=== PATIENT | male | born 1950 | race Caucasian/White ===

== ENCOUNTER → 2017-06-22 07:47 | Outpatient (CLI) | payer MEDICARE, SELFPAY ==
[2017-06-22 13:28] LABS: Hemoglobin A1C 6.2 % (0.0-7.0)
[2017-06-22 13:35] LABS: Alanine Aminotransferase 30 U/L (12-78); Albumin Level 3.8 gm/dL (3.4-5.0); Albumin/Globulin Ratio 1.3 (1.1-1.8); Alkaline Phosphatase 64 U/L (46-116); Anion Gap 13.8 mEq/L (5-15); Aspartate Amino Transferase 21 U/L (15-37); Bilirubin,Total 0.4 mg/dL (0.2-1.0); Blood Urea Nitrogen 17 mg/dL (7-18); Calcium 8.7 mg/dL (8.5-10.1); Carbon Dioxide 28 mmol/L (21.0-32.0); Chloride 109 mmol/L (98-107); Chol/HDL Ratio 3.1 (1-3.5); Cholesterol 108 mg/dL (140-200); Creatinine,Serum 1.25 mg/dL (0.70-1.30); Estimated Glomerular Filt Rate 58 ml/min (>60); GFR (African American) 70 ML/MIN (>60); Glucose 111 mg/dL (74-106); HDL Cholesterol 35 mg/dL (27-67); LDL Cholesterol 48 mg/dL (0-130); Potassium 4.8 mmoL/L (3.5-5.1); Sodium 146 mmol/L (136-145); Thyroid Stimulating Hormone 2.81 uIU/ml (0.358-3.740); Total Protein,Serum 6.8 gm/dL (6.4-8.2); Triglycerides 124 mg/dL (30-200); VLDL Cholesterol 25 mg/dL (0-40)
== END ==
PROVIDERS: PCP Internal Medicine Adolescent Medicine; Visit Provider Internal Medicine Adolescent Medicine
DX: E11.9 Type 2 diabetes mellitus without complications (principal); E78.5 Hyperlipidemia, unspecified; E03.9 Hypothyroidism, unspecified
CPT/HCPCS: 36415; 80053; 80061; 83036; 84443

== ENCOUNTER → 2018-03-27 09:57 | Outpatient (CLI) | payer MEDICARE, SELFPAY ==
[2018-03-27 14:55] LABS: Alanine Aminotransferase 33 U/L (12-78); Albumin Level 3.9 gm/dL (3.4-5.0); Albumin/Globulin Ratio 1.2 (1.1-1.8); Alkaline Phosphatase 56 U/L (46-116); Anion Gap 14.6 mEq/L (5-15); Aspartate Amino Transferase 19 U/L (15-37); Bilirubin,Total 0.5 mg/dL (0.2-1.0); Blood Urea Nitrogen 12 mg/dL (7-18); Calcium 8.3 mg/dL (8.5-10.1); Carbon Dioxide 27 mmol/L (21.0-32.0); Chloride 105 mmol/L (98-107); Chol/HDL Ratio 6.2 (1-3.5); Cholesterol 229 mg/dL (140-200); Creatinine,Serum 1.25 mg/dL (0.70-1.30); Estimated Glomerular Filt Rate 58 ml/min (>60); GFR (African American) 70 ML/MIN (>60); Globulin 3.3 gm/dl (1.3-3.2); Glucose 103 mg/dL (74-106); HDL Cholesterol 37 mg/dL (27-67); LDL Cholesterol 152 mg/dL (0-130); Potassium 4.6 mmoL/L (3.5-5.1); Sodium 142 mmol/L (136-145); Thyroid Stimulating Hormone 8.46 uIU/ml (0.358-3.740); Total Protein,Serum 7.2 gm/dL (6.4-8.2); Triglycerides 201 mg/dL (30-200); VLDL Cholesterol 40 mg/dL (0-40)
[2018-03-27 15:31] LABS: Hemoglobin A1C 6.3 % (0.0-7.0)
== END ==
PROVIDERS: PCP Internal Medicine Adolescent Medicine; Visit Provider Internal Medicine Adolescent Medicine
DX: E11.9 Type 2 diabetes mellitus without complications (principal); E78.5 Hyperlipidemia, unspecified; E03.9 Hypothyroidism, unspecified; I10 Essential (primary) hypertension
CPT/HCPCS: 36415; 80053; 80061; 83036; 84443

== ENCOUNTER → 2018-11-27 10:35 | Outpatient (CLI) | payer MEDICARE, SELFPAY ==
[2018-11-27 13:38] LABS: Basophils # 0.1 K/mm3 (0-0.2); Basophils % 0.6 % (0.1-2.0); Eosinophils # 0.1 K/mm3 (0.0-0.4); Hemoglobin 14.5 g/dL (14.1-18.0); Lymphocytes # 5.3 K/mm3 (0.7-4.5); Lymphocytes % 42.8 % (10-50); Mean Corpuscular HGB Conc 32.9 g/dL (31.8-35.4); Mean Corpuscular Hemoglobin 31.5 pg (27.0-31.2); Mean Corpuscular Volume 95.6 fl (80-94); Mean Platelet Volume 7.3 fl (7.4-10.4); Monocytes # 0.6 K/mm3 (0.1-1.0); Monocytes % 5.2 % (1.7-9.3); Neutrophils # 6.3 K/mm3 (1.8-7.8); Neutrophils % 50.4 % (37.0-80.0); Platelet Count 304 K/mm3 (142-424); Red Cell Distribution Width 14.6 % (11.5-17.5); White Blood Count 12.4 K/mm3 (4.8-10.8)
[2018-11-27 14:11] LABS: Hemoglobin A1C 6.4 % (0.0-7.0)
[2018-11-27 14:28] LABS: Alanine Aminotransferase 36 U/L (12-78); Albumin Level 4.1 gm/dL (3.4-5.0); Albumin/Globulin Ratio 1.5 (1.1-1.8); Alkaline Phosphatase 53 U/L (46-116); Anion Gap 15.5 mEq/L (5-15); Aspartate Amino Transferase 21 U/L (15-37); Bilirubin,Total 0.6 mg/dL (0.2-1.0); Blood Urea Nitrogen 21 mg/dL (7-18); Calcium 8.8 mg/dL (8.5-10.1); Carbon Dioxide 25 mmol/L (21.0-32.0); Chloride 106 mmol/L (98-107); Chol/HDL Ratio 3.2 (1-3.5); Cholesterol 107 mg/dL (140-200); Creatinine,Serum 1.36 mg/dL (0.70-1.30); Estimated Glomerular Filt Rate 52 ml/min (>60); GFR (African American) 63 ML/MIN (>60); Globulin 2.7 gm/dl (1.3-3.2); Glucose 106 mg/dL (74-106); HDL Cholesterol 33 mg/dL (27-67); LDL Cholesterol 52 mg/dL (0-130); Potassium 4.5 mmoL/L (3.5-5.1); Sodium 142 mmol/L (136-145); Thyroid Stimulating Hormone 1.43 uIU/ml (0.358-3.740); Total Protein,Serum 6.8 gm/dL (6.4-8.2); Triglycerides 111 mg/dL (30-200); VLDL Cholesterol 22 mg/dL (0-40)
== END ==
PROVIDERS: PCP Internal Medicine Adolescent Medicine; Visit Provider Internal Medicine Adolescent Medicine
DX: E11.9 Type 2 diabetes mellitus without complications (principal); E78.5 Hyperlipidemia, unspecified; E03.9 Hypothyroidism, unspecified
CPT/HCPCS: 36415; 80053; 80061; 83036; 84443; 85025

== ENCOUNTER → 2019-03-20 07:58 | Outpatient (CLI) | payer MEDICARE, SELFPAY ==
[2019-03-20 15:47] LABS: Alanine Aminotransferase 39 U/L (12-78); Albumin/Globulin Ratio 1.4 (1.1-1.8); Alkaline Phosphatase 53 U/L (46-116); Anion Gap 15.3 mEq/L (5-15); Aspartate Amino Transferase 22 U/L (15-37); Bilirubin,Total 0.4 mg/dL (0.2-1.0); Blood Urea Nitrogen 19 mg/dL (7-18); Calcium 8.3 mg/dL (8.5-10.1); Carbon Dioxide 25 mmol/L (21.0-32.0); Chloride 104 mmol/L (98-107); Creatinine,Serum 1.25 mg/dL (0.70-1.30); Estimated Glomerular Filt Rate 58 ml/min (>60); GFR (African American) 70 ML/MIN (>60); Globulin 2.8 gm/dl (1.3-3.2); Glucose 104 mg/dL (74-106); Potassium 4.3 mmoL/L (3.5-5.1); Sodium 140 mmol/L (136-145); Thyroid Stimulating Hormone 7.95 uIU/ml (0.358-3.740); Total Protein,Serum 6.8 gm/dL (6.4-8.2)
[2019-03-20 17:13] LABS: Hemoglobin A1C 6.4 % (0.0-7.0)
== END ==
PROVIDERS: Visit Provider Internal Medicine Adolescent Medicine
DX: E11.9 Type 2 diabetes mellitus without complications (principal); I10 Essential (primary) hypertension; E03.9 Hypothyroidism, unspecified
CPT/HCPCS: 36415; 80053; 83036; 84443

== ENCOUNTER → 2020-11-26 07:22 | Outpatient (CLI) | payer MEDICARE, SELFPAY ==
[2020-11-26 13:50] LABS: Chloride 105 mmol/L (98-107)
[2020-11-26 13:51] LABS: Potassium 4.3 mmoL/L (3.5-5.1); Sodium 139 mmol/L (136-145)
[2020-11-26 13:53] LABS: Alanine Aminotransferase 39 U/L (12-78); Alkaline Phosphatase 70 U/L (38-126); Anion Gap 13.3 mEq/L (5-15); Aspartate Amino Transferase 33 U/L (17-59); Bilirubin,Total 0.3 mg/dl (0.2-1.3); Blood Urea Nitrogen 20 mg/dl (9-20); Carbon Dioxide 25 mmol/L (22.0-30.0); Cholesterol 212 mg/dl (140-200); Estimated Glomerular Filt Rate 60 ml/min (>60); GFR (African American) 73 ML/MIN (>60); Triglycerides 323 mg/dl (30-150); VLDL Cholesterol 65 mg/dL (0-40)
[2020-11-26 13:54] LABS: Albumin Level 3.8 g/dl (3.5-5.0); Albumin/Globulin Ratio 1.5 (1.1-1.8); Calcium 8.5 mg/dl (8.4-10.2); Chol/HDL Ratio 6.8 (1-3.5); Globulin 2.6 g/dL (1.3-3.2); Glucose 131 mg/dl (74-100); HDL Cholesterol 31 mg/dl (40-60); Total Protein,Serum 6.4 g/dl (6.3-8.2)
[2020-11-26 14:11] LABS: HCG,Quantitative < 2 mIU/ml (0-5.42)
[2020-11-26 14:44] LABS: Hemoglobin A1C 7.3 % (4.0-6.0)
[2020-11-27 08:32] LABS: AFP, Tumor Marker 2.4 ng/mL (0.0-8.3)
== END ==
PROVIDERS: Visit Provider Internal Medicine Adolescent Medicine
DX: E11.9 Type 2 diabetes mellitus without complications (principal); E78.5 Hyperlipidemia, unspecified; E03.9 Hypothyroidism, unspecified; N50.9 Disorder of male genital organs, unspecified; N50.819 Testicular pain, unspecified; D49.59 Neoplasm of unspecified behavior of other genitourinary organ
CPT/HCPCS: 36415; 80053; 80061; 82105; 83036; 84443; 84702

== ENCOUNTER → 2021-01-12 13:06 | Outpatient (CLI) | payer MEDICARE, SELFPAY ==
--- NOTE | 2021-01-12 13:10 | US_ITS ---
PROCEDURE: US TESTICULAR CLINICAL INDICATION: TESTICULAR LESION COMPARISON: No exams were available for comparison FINDINGS: The right testicle is 4 x 2 x 3 cm. The left testicle is 4 x 2 x 3 cm. No testicular mass apparent. There is bilateral testicular blood flow. In the upper hemiscrotum on the right at the palpable abnormality there is a 3 x 1.6 x 2.4 cm cyst within the head of the epididymis. In the tail the epididymis on the right there is a septated 1.5 x 1.2 cm cystic lesion. A 6 mm cyst is present in the left epididymal body. No large hydrocele evident. No varicocele. IMPRESSION: Palpable abnormality on the right corresponds to a 3 cm x 2.4 cm epididymal cyst/spermatocele. In the tail the epididymis on the right there is a small septated cystic area consistent with a spermatocele/epididymal cyst measuring 1.5 cm. 6 mm left epididymal cyst. Dictated by: Charles Roblero MD 01/12/2021 16:26 Charles Roblero MD in [place] 01/12/2021 16:26
== END ==
PROVIDERS: PCP Internal Medicine Adolescent Medicine; Visit Provider Internal Medicine Adolescent Medicine
DX: N50.9 Disorder of male genital organs, unspecified (principal)
CPT/HCPCS: 76870

== ENCOUNTER → 2022-02-11 11:00 | Outpatient (CLI) | payer MEDICARE, SELFPAY ==
[2022-02-11 19:04] LABS: Basophils # 0.1 K/mm3 (0-0.2); Basophils % 0.6 % (0.1-2.0); Eosinophils % 0.4 % (0.1-12.0); Hematocrit 49.1 % (42.0-52.0); Hemoglobin 15.8 g/dL (14.1-18.0); Lymphocytes # 4.1 K/mm3 (0.7-4.5); Lymphocytes % 37.9 % (10-50); Mean Corpuscular HGB Conc 32.1 g/dL (31.8-35.4); Mean Corpuscular Hemoglobin 31.4 pg (27.0-31.2); Mean Corpuscular Volume 97.7 fl (80-94); Mean Platelet Volume 9.2 fl (7.4-10.4); Monocytes # 0.5 K/mm3 (0.1-1.0); Monocytes % 4.8 % (1.7-9.3); Neutrophils # 6.1 K/mm3 (1.8-7.8); Neutrophils % 56.2 % (37.0-80.0); Platelet Count 313 K/mm3 (142-424); Red Blood Count 5.02 M/mm3 (4.60-6.20); Red Cell Distribution Width 14.8 % (11.5-17.5); White Blood Count 10.8 K/mm3 (4.8-10.8)
[2022-02-11 19:28] LABS: Alanine Aminotransferase 28 U/L (12-78); Albumin Level 4.6 g/dl (3.5-5.0); Albumin/Globulin Ratio 1.8 (1.1-1.8); Alkaline Phosphatase 80 U/L (38-126); Anion Gap 14.2 mEq/L (5-15); Aspartate Amino Transferase 29 U/L (17-59); Bilirubin,Total 0.4 mg/dl (0.2-1.3); Blood Urea Nitrogen 24 mg/dl (9-20); Calcium 9.7 mg/dl (8.4-10.2); Carbon Dioxide 25 mmol/L (22.0-30.0); Chloride 106 mmol/L (98-107); Chol/HDL Ratio 5.7 (1-3.5); Cholesterol 224 mg/dl (140-200); Estimated Glomerular Filt Rate 50 ml/min (>60); GFR (African American) 61 ML/MIN (>60); Globulin 2.5 g/dL (1.3-3.2); Glucose 106 mg/dl (74-100); HDL Cholesterol 39 mg/dl (40-60); Potassium 4.2 mmoL/L (3.5-5.1); Sodium 141 mmol/L (136-145); Total Protein,Serum 7.1 g/dl (6.3-8.2); Triglycerides 281 mg/dl (30-150); VLDL Cholesterol 56 mg/dL (0-40)
[2022-02-11 19:39] LABS: Direct LDL Cholesterol 138.86 mg/dL (100-129)
[2022-02-11 22:23] LABS: Hemoglobin A1C 6.5 % (4.0-6.0)
== END ==
PROVIDERS: PCP Family Medicine; Visit Provider Family Medicine
DX: I10 Essential (primary) hypertension (principal); Z79.899 Other long term (current) drug therapy
CPT/HCPCS: 80053; 80061; 83036; 84443; 85025

== ENCOUNTER → 2022-02-23 07:47 | Outpatient (CLI) | payer MEDICARE, SELFPAY ==
--- NOTE | 2022-02-23 07:48 | CA_ITS ---
FINAL REPORT TECHNIQUE: Color Doppler, duplex Doppler and kohli scale sonography of the bilateral neck arterial vasculature was performed. Velocities were measured in the carotid arteries. Stenosis evaluation based on the validated velocity criteria. CLINICAL HISTORY: HX CVA,OBESITY,HTN,DM,HLD,WEAK PALPABLE CARTOID PULSES,HX ENDARDECTOMY PT NOT SURE SIDE ? RT FINDINGS: The peak systolic velocity of the right common carotid artery is 208 cm/s. The peak systolic velocity of the right internal carotid artery is 124 cm/s and end diastolic velocity 44 cm/s. The ICA/CCA ratio is 0.6. A mild amount of plaque is present. The right external carotid artery is patent. The right vertebral artery is patent with antegrade flow. The peak systolic velocity of the left common carotid artery is 82 cm/s. The peak systolic velocity of the left internal carotid artery is 166 cm/s and end diastolic velocity 6 cm/s. The ICA/CCA ratio is 2.0. No flow is identified in the mid or distal ICA. This may be due to occlusion or very slow flow. IMPRESSION: Less than 50% right carotid stenosis. Right vertebral artery is patent with antegrade flow. No flow identified in the mid or distal ICA, may be due to occlusion or very slow flow. Recommend correlation with CT angiogram or catheter angiogram. Reviewed, Interpreted and Dictated by Dalton Gaitan III, MD Transcribed by Juliet Hoover Authenticated and [facility]
--- NOTE | 2022-02-23 07:48 | CA_ITS ---
FINAL REPORT CLINICAL HISTORY: CVA, Smoker, discolored feet with trophic toenails and claudication .Lt > Rt symptoms FINDINGS: RIGHT LOWER EXTREMITY: Velocities cm/sec: HOME MAKER: 255 SFA Prox: 127 SFA Mid: 120 SFA Dist: 162 POP: 74 HOTEL SECURITY OFFICER: 55 CARMEN: 62 Waveforms are triphasic and biphasic. LEFT LOWER EXTREMITY: Velocities cm/sec: HOME MAKER: 120 SFA Prox: 136 SFA Mid: 72 SFA Dist: 82 POP: 50 HOTEL SECURITY OFFICER: 62 CARMEN: 51 Waveforms are triphasic and biphasic. IMPRESSION: No significant vascular disease. Reviewed, Interpreted and Dictated by Dalton Gaitan III, MD Transcribed by Martín Carroll Authenticated and [facility]
--- NOTE | 2022-02-23 08:47 | US_ITS ---
FINAL REPORT CLINICAL HISTORY: abdominal pain FINDINGS: Sonographic images of the abdomen were obtained. The study was technically difficult secondary to patient body habitus and difficulty holding breath. The liver has increased echogenicity consistent with fatty infiltration. The gallbladder has an unremarkable appearance without evidence of gallstones. There is no evidence of biliary ductal dilatation. The common hepatic duct measures 4 mm, which is within normal limits. Limited images of the pancreas are unremarkable. The spleen size is normal. The right kidney measures 10.6 cm in length. The left kidney measures 9.5 cm in length. There are several left renal cysts with largest measuring 3.6 cm and may have a calcification within it. This is not consistent with a simple cyst. There is no evidence of hydronephrosis. There is plaque within the aorta. Limited images of the inferior vena cava are unremarkable. IMPRESSION: Several left renal cysts, largest measuring 3.6 cm which is not not consistent with a simple cyst. Recommend renal mass protocol CT for further evaluation. Fatty infiltrated liver. Reviewed, Interpreted and Dictated by Dalton Gaitan III, MD Transcribed by Juliet Hoover Authenticated and . [facility]
== END ==
PROVIDERS: PCP Family Medicine; Visit Provider Family Medicine
DX: I10 Essential (primary) hypertension (principal); R10.9 Unspecified abdominal pain; R09.89 Other specified symptoms and signs involving the circulatory and respiratory systems
CPT/HCPCS: 76700; 93880; 93925

== ENCOUNTER → 2022-03-03 13:16 | Outpatient (CLI) | payer MEDICARE, SELFPAY ==
--- NOTE | 2022-03-03 13:16 | CT_ITS ---
FINAL REPORT CLINICAL HISTORY: renal cyst FINDINGS: Post contrast axial imaging of the abdomen was obtained and reviewed. This study was performed with techniques to keep radiation doses as low as reasonably achievable (ALARA). Individualized dose reduction techniques using automated exposure control or adjustment of mA and/or kV according to the patient's size were employed. There is moderate vascular calcification. There is no evidence of aortic aneurysm. There is no evidence of aortic stenosis. The celiac axis, superior mesenteric artery and inferior mesenteric artery are patent without stenosis. There is no evidence of renal artery stenosis. The iliac arteries are unremarkable, without stenosis. The internal iliac arteries are patent. Review of the remaining abdomen and pelvis demonstrates fatty infiltration of the liver. There is left adrenal gland enlargement could represent hyperplasia or adenoma. The appendix is normal. There are multiple left renal cysts. A 41 mm cystic mass in the lateral left kidney has a thin septation and a small calcification consistent with a mildly complicated (Bosniak category 2) cyst. IMPRESSION: Multiple left renal cysts as above. Moderate vascular calcification. No evidence of significant stenosis. Reviewed, Interpreted and Dictated by Dalton Gaitan III, MD Transcribed by Martín Carroll Authenticated and [facility]
== END ==
LOC: RAD 13:16
PROVIDERS: PCP Family Medicine; Visit Provider Family Medicine
DX: I63.9 Cerebral infarction, unspecified (principal); I65.29 Occlusion and stenosis of unspecified carotid artery; N28.1 Cyst of kidney, acquired
CPT/HCPCS: 74175; Q9967

== ENCOUNTER → 2022-05-19 18:45 | Outpatient (CLI) | payer MEDICARE, SELFPAY ==
[2022-05-19 17:38] LABS: Alanine Aminotransferase 32 U/L (12-78); Albumin Level 4.6 g/dl (3.5-5.0); Albumin/Globulin Ratio 1.8 (1.1-1.8); Alkaline Phosphatase 52 U/L (38-126); Aspartate Amino Transferase 31 U/L (17-59); Bilirubin,Total 0.7 mg/dl (0.2-1.3); Blood Urea Nitrogen 19 mg/dl (9-20); Calcium 8.8 mg/dl (8.4-10.2); Carbon Dioxide 25 mmol/L (22.0-30.0); Chloride 105 mmol/L (98-107); Chol/HDL Ratio 6.3 (1-3.5); Cholesterol 221 mg/dl (140-200); Estimated Glomerular Filt Rate 55 ml/min (>60); GFR (African American) 66 ML/MIN (>60); Globulin 2.5 g/dL (1.3-3.2); Glucose 107 mg/dl (74-100); HDL Cholesterol 35 mg/dl (40-60); Sodium 139 mmol/L (136-145); Total Protein,Serum 7.1 g/dl (6.3-8.2); Triglycerides 234 mg/dl (30-150); VLDL Cholesterol 47 mg/dL (0-40)
[2022-05-19 17:39] LABS: Anion Gap 13.8 mEq/L (5-15); Potassium 4.8 mmoL/L (3.5-5.1)
[2022-05-19 17:49] LABS: Direct LDL Cholesterol 150.88 mg/dL (100-129)
[2022-05-19 17:52] LABS: Hemoglobin A1C 6.2 % (4.0-6.0)
[2022-05-19 18:10] LABS: Thyroid Stimulating Hormone 4.53 uIU/mL (0.465-4.68)
[2022-05-19 18:58] LABS: Microalbumin/Creatinine Ratio 26.5
[2022-05-19 19:10] LABS: Creatinine,Urine Random 41 mg/dL (Not Estab.)
== END ==
PROVIDERS: PCP Family Medicine; Visit Provider Family Medicine
DX: E11.9 Type 2 diabetes mellitus without complications (principal); I10 Essential (primary) hypertension; E78.5 Hyperlipidemia, unspecified
CPT/HCPCS: 80053; 80061; 82043; 82570; 83036; 84443

== ENCOUNTER 2022-07-24 18:41 | Emergency (ER) | payer MEDICARE, SELFPAY ==
[2022-07-24 18:50] VITALS: BP 134/64; PULSE 93; RESP 24; TEMP 37.4; O2SAT 96; BMI 34.4
--- NOTE | 2022-07-24 19:01 | EXP.UTC ---
Discharge Plan Disposition Patient Disposition: Still a Patient Condition: Fair Prescriptions Prescriptions: No Action aspirin 325 mg tablet 325 mg PO DAILY lisinopril 10 mg tablet 10 mg PO DAILY Qty: 30 2RF pravastatin 20 mg tablet 20 mg PO DAILY Qty: 30 4RF levothyroxine 100 mcg tablet 100 mcg PO DAILY 30 Days Qty: 30 3RF cetirizine [Zyrtec] 10 mg tablet 10 mg PO DAILY Qty: 90 3RF Referrals Follow up/Referrals: Jonathan Starkey MD [Primary Care Provider] - See instructions Discharge ED Provider: Dennys Echols [facility] [place] General Stated complaint: RT leg red swelling Mode of Arrival: Ambulatory Source of Information: Patient and Relative Limitations: No Limitations Time Seen by Provider: 07/24/22 19:01 Description of Symptoms (Recalled from Triage Doc. by RN): PATIENT C/O PAIN, SWELLING, AND REDNESS TO RIGHT LOWER LEG X 2 DAYS HEENT Symptoms (Recalled from RN notes): No Resp Symptoms (Recalled from RN notes): No Skin Symptoms (Recalled from RN notes): No MS Symptoms (Recalled from RN notes): No Functional Status (Recalled from RN notes): WNL History of Present Illness Provider Complaint: Patient states that he has been having redness, swelling and discoloration of his right lower leg from his knee down to toes for the last 2 days that has got worse States that Pain in leg is a 10/10 States that he hasnt had any oozing or anything but has had low grade fever and chills with it so today his got him to come in and get it checked when the pain got so bad Related Data Home Medications Medication Instructions Recorded Confirmed aspirin 325 mg tablet 325 mg PO DAILY 02/11/22 05/19/22 Previous Rx's Medication Instructions Recorded lisinopril 10 mg tablet 10 mg PO DAILY high blood pressure 05/19/22 #30 tabs pravastatin 20 mg tablet 20 mg PO DAILY #30 tabs 05/20/22 levothyroxine 100 mcg tablet 100 mcg PO DAILY 30 days #30 tabs 05/21/22 cetirizine 10 mg tablet (Zyrtec) 10 mg PO DAILY allergies #90 tabs 06/15/22 Allergies Allergy/AdvReac Type Severity Reaction Status Date / Time ibuprofen Allergy Verified 07/24/22 18:59 Worker's Comp Is this a Worker's Comp case?: No [facility] Disclaimer: The information contained in this section may have been updated after the patient was seen, as this information can be updated by other users. Medical History CVA (cerebral vascular accident) Hyperlipidemia Hypertension Surgical History H/O shoulder surgery Hx of endarterectomy Family History Mother Stroke Father Diabetes Coronary artery disease Social History Smoking Status: Current every day smoker alcohol intake: never substance use type: denies use current occupational status: disabled Travel in the last 8 weeks: None household members: spouse and children housing: house ROS Obtained: Yes All systems reviewed & no additional complaints except as documented and Yes Systems reviewed as appropriate & no additional complaints except as documented Constitutional Constitutional: Reports system reviewed and no additional complaints, except as documented, Reports as per HPI, Reports body ache, Reports chills and Reports fever(s) ENT Ears, Nose, Mouth, and Throat: Reports system reviewed and no additional complaints, except as documented and Reports as per HPI Cardiovascular Cardiovascular: Reports system reviewed and no additional complaints, except as documented, Reports as per HPI, Denies chest pain and Reports leg edema Respiratory Respiratory: Reports system reviewed and no additional complaints, except as documented, Reports as per HPI and Denies shortness of breath Gastrointestinal Gastrointestingal: Reports system reviewed and no additional com
--- NOTE | 2022-07-24 19:08 | PC.NURSE ---
pt brought over from [facility] via wheelchair. Obtaining vitals at this time.
[2022-07-24 19:09] VITALS: BP 133/73; PULSE 87; RESP 20; TEMP 37; O2SAT 93; BMI 34.3
[2022-07-24 19:31] VITALS: BP 128/74; PULSE 87; O2SAT 90
[2022-07-24 20:00] VITALS: BP 128/66; PULSE 91; O2SAT 91
[2022-07-24 20:51] LABS: Basophils # 0.1 K/mm3 (0-0.2); Basophils % 0.4 % (0.1-2.0); Eosinophils # 0.1 K/mm3 (0.0-0.4); Eosinophils % 0.7 % (0.1-12.0); Hematocrit 37.9 % (42.0-52.0); Hemoglobin 14.2 g/dL (14.1-18.0); Lymphocytes # 3.2 K/mm3 (0.7-4.5); Lymphocytes % 23.8 % (10-50); Mean Corpuscular HGB Conc 37.4 g/dL (31.8-35.4); Mean Corpuscular Hemoglobin 35.2 pg (27.0-31.2); Mean Corpuscular Volume 94.3 fl (80-94); Mean Platelet Volume 7.8 fl (7.4-10.4); Monocytes # 0.7 K/mm3 (0.1-1.0); Monocytes % 4.9 % (1.7-9.3); Neutrophils # 9.5 K/mm3 (1.8-7.8); Neutrophils % 70.3 % (37.0-80.0); Platelet Count 288 K/mm3 (142-424); Red Blood Count 4.02 M/mm3 (4.60-6.20); Red Cell Distribution Width 14.1 % (11.5-17.5); White Blood Count 13.5 K/mm3 (4.8-10.8)
[2022-07-24 20:58] LABS: Alanine Aminotransferase 37 U/L (12-78); Albumin Level 3.9 g/dl (3.5-5.0); Albumin/Globulin Ratio 1.5 (1.1-1.8); Alkaline Phosphatase 64 U/L (38-126); Aspartate Amino Transferase 44 U/L (17-59); Bilirubin,Total 0.7 mg/dl (0.2-1.3); Blood Urea Nitrogen 20 mg/dl (9-20); Calcium 8.3 mg/dl (8.4-10.2); Carbon Dioxide 23 mmol/L (22.0-30.0); Chloride 97 mmol/L (98-107); Creatinine Clearance Estimated 88 mL/min (50-200); Estimated Glomerular Filt Rate 60 ml/min (>60); GFR (African American) 72 ML/MIN (>60); Globulin 2.6 g/dL (1.3-3.2); Glucose 140 mg/dl (74-100); Lactic Acid 1.1 mmol/L (0.7-2.1); Sodium 134 mmol/L (136-145); Total Protein,Serum 6.5 g/dl (6.3-8.2)
[2022-07-24 21:03] LABS: C-Reactive Protein 170.8 mg/L (0-4)
--- NOTE | 2022-07-24 21:17 | HMH.EDGENADL ---
Discharge Plan Disposition Patient Disposition: Home, Self-Care Condition: Good Prescriptions Prescriptions: New sulfamethoxazole-trimethoprim [Bactrim DS] 800-160 mg tablet 1 tab PO Q12H Qty: 20 0RF cephalexin 500 mg capsule 500 mg PO Q8H 10 Days Qty: 30 0RF No Action aspirin 325 mg tablet 325 mg PO DAILY lisinopril 10 mg tablet 10 mg PO DAILY Qty: 30 2RF pravastatin 20 mg tablet 20 mg PO DAILY Qty: 30 4RF levothyroxine 100 mcg tablet 100 mcg PO DAILY 30 Days Qty: 30 3RF cetirizine [Zyrtec] 10 mg tablet 10 mg PO DAILY Qty: 90 3RF Referrals Follow up/Referrals: Jonathan Starkey MD [Primary Care Provider] - See instructions Clinical Impressions Clinical Impression: Cellulitis of leg without foot, right Instructions Patient Instructions: DI for Skin Abscess Discharge ED Provider: Dennys Echols Adult HPI General Chief complaint: Skin/Abscess/Foreign Body Stated complaint: RT leg red swelling Time Seen by Provider: 07/24/22 19:01 Mode of Arrival: Ambulatory Source of Information: Patient and Relative Limitations: No Limitations Description of Symptoms (Recalled from ER Triage Doc. by RN): PATIENT C/O PAIN, SWELLING, AND REDNESS TO RIGHT LOWER LEG X 2 DAYS History of Present Illness HPI narrative: This is a very pleasant 71-year-old gentleman with a past medical history of hypertension, hyperlipidemia, stroke, diabetes who presents to the emergency department with redness and pain to his right lower leg for the past 2 to 3 days. Denies any fevers, chills, nausea, vomiting, he has decreased sensation in his right leg at baseline but denies any acute worsening. Related Data Home Medications Medication Instructions Recorded Confirmed aspirin 325 mg tablet 325 mg PO DAILY 02/11/22 05/19/22 Previous Rx's Medication Instructions Recorded lisinopril 10 mg tablet 10 mg PO DAILY high blood pressure 05/19/22 #30 tabs pravastatin 20 mg tablet 20 mg PO DAILY #30 tabs 05/20/22 levothyroxine 100 mcg tablet 100 mcg PO DAILY 30 days #30 tabs 05/21/22 cetirizine 10 mg tablet (Zyrtec) 10 mg PO DAILY allergies #90 tabs 06/15/22 cephalexin 500 mg capsule 500 mg PO Q8H 10 days #30 caps 07/24/22 sulfamethoxazole 800 1 tab PO Q12H #20 tabs 07/24/22 mg-trimethoprim 160 mg tablet (Bactrim DS) Allergies Allergy/AdvReac Type Severity Reaction Status Date / Time ibuprofen Allergy Verified 07/24/22 18:59 PFSH PFS Disclaimer: The information contained in this section may have been updated after the patient was seen, as this information can be updated by other users. Medical History CVA (cerebral vascular accident) Hyperlipidemia Hypertension Surgical History H/O shoulder surgery Hx of endarterectomy Family History Mother Stroke Father Diabetes Coronary artery disease Social History Smoking Status: Current every day smoker alcohol intake: never substance use type: denies use current occupational status: disabled Travel in the last 8 weeks: None household members: spouse and children housing: house ROS Obtained: Yes All systems reviewed & no additional complaints except as documented Physical Exam General General appearance: alert and in no apparent distress Head Head exam: atraumatic and normocephalic Eye Eye exam: Present normal appearance and EOMI ENT ENT exam: Present normal exam Neck Neck exam: Present normal inspection Chest Chest inspection: Present normal inspection Respiratory Respiratory exam: Present normal lung sounds bilaterally Cardiovascular Cardiovascular exam: Present regular rate and normal rhythm Abdominal Exam Abdominal exam: Present soft Extremities Exam Extremities exam: Present oth
[2022-07-24 21:21] VITALS: BP 145/85; PULSE 80; RESP 20; TEMP 36.9; O2SAT 94
== END 2022-07-24 21:37 | disposition home or self-care (01) ==
LOC: UTC 18:46 → ER 19:04
PROVIDERS: Emergency Provider Emergency Medicine; PCP Family Medicine
DX: L03.115 Cellulitis of right lower limb (principal); F17.200 Nicotine dependence, unspecified, uncomplicated
CPT/HCPCS: 80053; 83605; 85025; 86140; 87040; 87077; 87186; 96374; 99285; J0696

== ENCOUNTER → 2022-07-28 12:00 | Outpatient (CLI) | payer MEDICARE, SELFPAY ==
[2022-07-28 18:45] LABS: Basophils # 0.1 K/mm3 (0-0.2); Basophils % 0.6 % (0.1-2.0); Eosinophils # 0.1 K/mm3 (0.0-0.4); Eosinophils % 0.7 % (0.1-12.0); Hematocrit 46.1 % (42.0-52.0); Hemoglobin 14.7 g/dL (14.1-18.0); Lymphocytes # 4.9 K/mm3 (0.7-4.5); Lymphocytes % 34.6 % (10-50); Mean Corpuscular HGB Conc 31.9 g/dL (31.8-35.4); Mean Corpuscular Hemoglobin 31.7 pg (27.0-31.2); Mean Corpuscular Volume 99.3 fl (80-94); Monocytes # 0.6 K/mm3 (0.1-1.0); Monocytes % 4.2 % (1.7-9.3); Neutrophils # 8.4 K/mm3 (1.8-7.8); Neutrophils % 59.9 % (37.0-80.0); Platelet Count 437 K/mm3 (142-424); Red Blood Count 4.64 M/mm3 (4.60-6.20)
[2022-07-28 19:08] LABS: Anion Gap 23.3 mEq/L (5-15); Blood Urea Nitrogen 18 mg/dl (9-20); Calcium 8.9 mg/dl (8.4-10.2); Carbon Dioxide 24 mmol/L (22.0-30.0); Chloride 98 mmol/L (98-107); Estimated Glomerular Filt Rate 50 ml/min (>60); GFR (African American) 61 ML/MIN (>60); Glucose 122 mg/dl (74-100); Potassium 4.3 mmoL/L (3.5-5.1); Sodium 141 mmol/L (136-145)
[2022-07-28 19:19] LABS: C-Reactive Protein 80.3 mg/L (0-4)
== END ==
PROVIDERS: PCP Nurse Practitioner Family; Visit Provider Nurse Practitioner Family
DX: I10 Essential (primary) hypertension (principal); L03.115 Cellulitis of right lower limb; L03.90 Cellulitis, unspecified
CPT/HCPCS: 80048; 85025; 86140

== ENCOUNTER → 2022-09-06 14:45 | Outpatient (CLI) | payer MEDICARE, SELFPAY ==
--- NOTE | 2022-09-06 14:45 | US_ITS ---
FINAL REPORT TECHNIQUE: Ultrasound images of the kidneys and bladder were obtained. CLINICAL HISTORY: follow up COMPARISON: 02/23/2022 FINDINGS: The right kidney measures 10.4 cm in length. It is normal in echogenicity. There is no hydronephrosis. The left kidney measures 9.9 cm in length. It is normal in echogenicity. There is no hydronephrosis. There are several masses in the left kidney as noted on the previous ultrasound of February 2022. In the upper pole there is a 3.7 cm mass, which has the appearance of a simple cyst. There is a 3.8 cm predominantly cystic structure with calcification, not a simple cyst, stable since February. There is a 3rd 3.1 cm cyst in the left kidney as well. The urinary bladder is unremarkable. Fatty infiltration of the liver is once again noted. IMPRESSION: There are 3 cystic masses in the left kidney, unchanged since the prior ultrasound examination of February. 2 of them have an appearance compatible with simple cysts. However the 3rd measures 3.8 cm and contains calcification, not a simple cyst, stable but compatible with a complex cyst. CT with renal mass protocol is suggested for further evaluation. Fatty infiltration of the liver remains present. Reviewed, Interpreted and Dictated by Dalton Gaitan III, MD Transcribed by Yamel Fritz Authenticated and [facility]
== END ==
LOC: RAD 14:45
PROVIDERS: PCP Nurse Practitioner Family; Visit Provider Family Medicine
DX: N28.1 Cyst of kidney, acquired (principal)
CPT/HCPCS: 76770

== ENCOUNTER → 2022-12-31 08:12 | Outpatient (CLI) | payer MEDICARE, SELFPAY ==
[2022-12-31 17:11] LABS: Alanine Aminotransferase 32 U/L (12-78); Albumin Level 4.5 g/dl (3.5-5.0); Albumin/Globulin Ratio 1.6 (1.1-1.8); Alkaline Phosphatase 63 U/L (38-126); Anion Gap 16.8 mEq/L (5-15); Aspartate Amino Transferase 32 U/L (17-59); Bilirubin,Total 0.4 mg/dl (0.2-1.3); Blood Urea Nitrogen 20 mg/dl (9-20); Calcium 8.9 mg/dl (8.4-10.2); Carbon Dioxide 25 mmol/L (22.0-30.0); Chloride 104 mmol/L (98-107); Chol/HDL Ratio 5.1 (1-3.5); Cholesterol 189 mg/dl (140-200); Estimated Glomerular Filt Rate 60 ml/min (>60); GFR (African American) 72 ML/MIN (>60); Globulin 2.9 g/dL (1.3-3.2); Glucose 116 mg/dl (74-100); HDL Cholesterol 37 mg/dl (40-60); Potassium 4.8 mmoL/L (3.5-5.1); Sodium 141 mmol/L (136-145); Total Protein,Serum 7.4 g/dl (6.3-8.2); Triglycerides 187 mg/dl (30-150); VLDL Cholesterol 37 mg/dL (0-40)
[2022-12-31 17:21] LABS: Basophils # 0.1 K/mm3 (0-0.2); Basophils % 0.5 % (0.1-2.0); Eosinophils # 0.1 K/mm3 (0.0-0.4); Eosinophils % 0.5 % (0.1-12.0); Hematocrit 48.4 % (42.0-52.0); Hemoglobin 16.2 g/dL (14.1-18.0); Lymphocytes % 44.2 % (10-50); Mean Corpuscular HGB Conc 33.5 g/dL (31.8-35.4); Mean Corpuscular Hemoglobin 33.6 pg (27.0-31.2); Mean Corpuscular Volume 100.1 fl (80-94); Mean Platelet Volume 9.3 fl (7.4-10.4); Monocytes # 0.6 K/mm3 (0.1-1.0); Monocytes % 5.4 % (1.7-9.3); Neutrophils # 5.6 K/mm3 (1.8-7.8); Neutrophils % 49.3 % (37.0-80.0); Platelet Count 264 K/mm3 (142-424); Red Blood Count 4.83 M/mm3 (4.60-6.20); Red Cell Distribution Width 14.4 % (11.5-17.5); White Blood Count 11.3 K/mm3 (4.8-10.8)
[2022-12-31 17:22] LABS: Direct LDL Cholesterol 125.79 mg/dL (100-129)
[2022-12-31 17:42] LABS: Thyroid Stimulating Hormone 6.03 uIU/mL (0.465-4.68)
[2022-12-31 18:27] LABS: Hemoglobin A1C 6.6 % (4.0-6.0)
== END ==
PROVIDERS: PCP Nurse Practitioner Family; Visit Provider Nurse Practitioner Family
DX: E11.9 Type 2 diabetes mellitus without complications (principal); E78.5 Hyperlipidemia, unspecified; I10 Essential (primary) hypertension; Z79.84 Long term (current) use of oral hypoglycemic drugs; Z79.899 Other long term (current) drug therapy
CPT/HCPCS: 80053; 80061; 83036; 84443; 85025

== ENCOUNTER 2023-02-27 15:20 | Emergency (ER) | payer MEDICARE, SELFPAY ==
[2023-02-27 15:21] VITALS: BP 137/76; PULSE 98; RESP 20; TEMP 36.9; O2SAT 95; BMI 34.8
[2023-02-27 15:30] VITALS: BP 150/83; PULSE 90; O2SAT 97
--- NOTE | 2023-02-27 15:39 | PC.NURSE ---
DR BECERRA AT BEDSIDE
--- NOTE | 2023-02-27 15:46 | PC.NURSE ---
DR BECERRA AT BEDSIDE
--- NOTE | 2023-02-27 15:48 | HMH.EDGENADL ---
Discharge Plan Disposition Patient Disposition: Home, Self-Care Prescriptions Prescriptions: No Action aspirin 325 mg tablet 325 mg PO DAILY cetirizine [Zyrtec] 10 mg tablet 10 mg PO DAILY 90 Days Qty: 90 0RF lisinopril 10 mg tablet 10 mg PO DAILY 30 Days Qty: 30 1RF metformin 500 mg tablet extended release 24 hr 500 mg PO DAILY Qty: 90 1RF pravastatin 40 mg tablet 40 mg PO DAILY Qty: 90 1RF levothyroxine 112 mcg capsule 112 mcg PO DAILY Qty: 30 2RF Referrals Follow up/Referrals: Jonathan Starkey MD [Primary Care Provider] - See instructions Activity Restrictions/Add. Instructions Additional Instructions/Restrictions: Call your family doctor to establish care for this visit to the emergency department and schedule follow-up within 48 hours to ensure improvement. If you have any worsening of your condition or any other concerning signs or symptoms, return to the emergency department or your primary care doctor for further evaluation. Tell your family doctor you received dalbavancin 1.5 g on 02/27 Clinical Impressions Clinical Impression: Cellulitis of left lower extremity Discharge ED Provider: Kel [facility] Adult HPI General Chief complaint: Extremity Injury, Lower Stated complaint: Left leg red and swollen Time Seen by Provider: 02/27/23 15:23 Mode of Arrival: Ambulatory Source of Information: Patient Limitations: No Limitations Description of Symptoms (Recalled from ER Triage Doc. by RN): left leg pain, swelling, and redness x 1 week. History of Present Illness HPI narrative: 72-year-old male history of hypertension, hyperlipidemia, PAD, type 2 diabetes, previous CVA currently on aspirin presenting with left lower extremity pain and redness. Been getting worse over about 10 days to 2 weeks. Now becoming painful. Patient having fevers that he has not measured, but is breaking out in sweats. Denies trauma to the area, water exposure, or any other concerns. Related Data Home Medications Medication Instructions Recorded Confirmed aspirin 325 mg tablet 325 mg PO DAILY 02/11/22 12/31/22 Previous Rx's Medication Instructions Recorded cetirizine 10 mg tablet (Zyrtec) 10 mg PO DAILY allergies 90 days 12/21/22 #90 tabs lisinopril 10 mg tablet 10 mg PO DAILY high blood pressure 12/21/22 30 days #30 tabs levothyroxine 112 mcg capsule 112 mcg PO DAILY #30 caps 10/23/23 metformin 500 mg tablet,extended 500 mg PO DAILY #90 tabs 01/03/23 release 24 hr pravastatin 40 mg tablet 40 mg PO DAILY #90 tabs 01/03/23 Allergies Allergy/AdvReac Type Severity Reaction Status Date / Time ibuprofen Allergy Verified 12/31/22 08:42 [facility] Disclaimer: The information contained in this section may have been updated after the patient was seen, as this information can be updated by other users. Medical History CVA (cerebral vascular accident) Hyperlipidemia Hypertension Surgical History H/O shoulder surgery Hx of endarterectomy Family History Mother Stroke Father Diabetes Coronary artery disease Social History Smoking Status: Current every day smoker alcohol intake: never substance use type: denies use current occupational status: disabled Travel in the last 8 weeks: None household members: spouse and children housing: house ROS Obtained: Yes All systems reviewed & no additional complaints except as documented Physical Exam General General appearance: alert and in no apparent distress Head Head exam: atraumatic and normocephalic Eye Eye exam: Present normal appearance, PERRL and EOMI ENT ENT exam: Present mucous membranes moist Neck Neck exam: Present normal inspection, full ROM and trachea midline Respiratory Respira
[2023-02-27 16:17] LABS: Basophils # 0.1 K/mm3 (0-0.2); Basophils % 0.3 % (0.1-2.0); Eosinophils % 0.2 % (0.1-12.0); Hematocrit 45.6 % (42.0-52.0); Hemoglobin 14.8 g/dL (14.1-18.0); Lymphocytes % 18.4 % (10-50); Mean Corpuscular HGB Conc 32.4 g/dL (31.8-35.4); Mean Corpuscular Hemoglobin 31.8 pg (27.0-31.2); Mean Corpuscular Volume 98.2 fl (80-94); Mean Platelet Volume 8.1 fl (7.4-10.4); Monocytes # 0.8 K/mm3 (0.1-1.0); Monocytes % 4.7 % (1.7-9.3); Neutrophils # 12.5 K/mm3 (1.8-7.8); Neutrophils % 76.3 % (37.0-80.0); Platelet Count 237 K/mm3 (142-424); Red Blood Count 4.64 M/mm3 (4.60-6.20); Red Cell Distribution Width 14.6 % (11.5-17.5); White Blood Count 16.4 K/mm3 (4.8-10.8)
[2023-02-27 16:18] LABS: MANUAL DIFFERENTIAL MANUAL DIFFERENTIAL (MANUAL DIFF)
[2023-02-27 16:22] LABS: Chloride 100 mmol/L (98-107); Sodium 134 mmol/L (136-145)
[2023-02-27 16:25] LABS: Alanine Aminotransferase 32 U/L (12-78); Alkaline Phosphatase 53 U/L (38-126); Aspartate Amino Transferase 35 U/L (17-59); Bilirubin,Total 0.6 mg/dl (0.2-1.3); Blood Urea Nitrogen 23 mg/dl (9-20); Creatinine Clearance Estimated 84 mL/min (50-200); Estimated Glomerular Filt Rate 54 ml/min (>60); GFR (African American) 66 ML/MIN (>60)
[2023-02-27 16:26] LABS: Albumin Level 4.4 g/dl (3.5-5.0); Albumin/Globulin Ratio 1.3 (1.1-1.8); Calcium 8.6 mg/dl (8.4-10.2); Carbon Dioxide 27 mmol/L (22.0-30.0); Globulin 3.5 g/dL (1.3-3.2); Glucose 125 mg/dl (74-100); Lactic Acid 1.5 mmol/L (0.7-2.1); Total Protein,Serum 7.9 g/dl (6.3-8.2)
[2023-02-27 16:31] LABS: C-Reactive Protein 291.4 mg/L (0-4)
[2023-02-27 16:32] LABS: Lymphocytes % 25 % (10-50); Monocytes % 2 % (2-9); Neutrophils % 73 % (42-76); Platelet Estimate Normal; RBC Morphology Normal; Total Cells Counted 100
[2023-02-27 16:54] VITALS: BP 137/95; PULSE 88; RESP 18; TEMP 36.7; O2SAT 94
== END 2023-02-27 16:56 | disposition home or self-care (01) ==
PROVIDERS: Emergency Provider Emergency Medicine; PCP Family Medicine
DX: L03.116 Cellulitis of left lower limb (principal); E11.51 Type 2 diabetes mellitus with diabetic peripheral angiopathy without gangrene; I10 Essential (primary) hypertension; E78.5 Hyperlipidemia, unspecified; F17.200 Nicotine dependence, unspecified, uncomplicated
CPT/HCPCS: 80053; 83605; 85007; 85025; 86140; 96374; 99285; J0875

== ENCOUNTER 2023-04-08 20:35 | Outpatient (CLI) | payer MEDICARE, SELFPAY ==
[2023-04-08 17:33] LABS: Basophils # 0.1 K/mm3 (0-0.2); Basophils % 0.6 % (0.1-2.0); Eosinophils # 0.1 K/mm3 (0.0-0.4); Eosinophils % 0.6 % (0.1-12.0); Hematocrit 43.6 % (42.0-52.0); Hemoglobin 14.3 g/dL (14.1-18.0); Lymphocytes # 4.7 K/mm3 (0.7-4.5); Lymphocytes % 43.4 % (10-50); Mean Corpuscular HGB Conc 32.8 g/dL (31.8-35.4); Mean Corpuscular Hemoglobin 32.6 pg (27.0-31.2); Mean Corpuscular Volume 99.2 fl (80-94); Mean Platelet Volume 8.8 fl (7.4-10.4); Monocytes # 0.5 K/mm3 (0.1-1.0); Monocytes % 4.8 % (1.7-9.3); Neutrophils # 5.5 K/mm3 (1.8-7.8); Neutrophils % 50.6 % (37.0-80.0); Platelet Count 268 K/mm3 (142-424); Red Blood Count 4.39 M/mm3 (4.60-6.20); Red Cell Distribution Width 14.6 % (11.5-17.5); White Blood Count 10.9 K/mm3 (4.8-10.8)
[2023-04-08 18:08] LABS: Alanine Aminotransferase 30 U/L (12-78); Albumin Level 4.2 g/dl (3.5-5.0); Albumin/Globulin Ratio 1.6 (1.1-1.8); Alkaline Phosphatase 55 U/L (38-126); Anion Gap 15.4 mEq/L (5-15); Aspartate Amino Transferase 33 U/L (17-59); Bilirubin,Total 0.3 mg/dl (0.2-1.3); Blood Urea Nitrogen 20 mg/dl (9-20); Calcium 8.9 mg/dl (8.4-10.2); Carbon Dioxide 23 mmol/L (22.0-30.0); Chloride 106 mmol/L (98-107); Cholesterol 180 mg/dl (140-200); Estimated Glomerular Filt Rate 60 ml/min (>60); GFR (African American) 72 ML/MIN (>60); Globulin 2.7 g/dL (1.3-3.2); Glucose 116 mg/dl (74-100); HDL Cholesterol 36 mg/dl (40-60); Potassium 4.4 mmoL/L (3.5-5.1); Sodium 140 mmol/L (136-145); Total Protein,Serum 6.9 g/dl (6.3-8.2); Triglycerides 225 mg/dl (30-150); VLDL Cholesterol 45 mg/dL (0-40)
[2023-04-08 18:38] LABS: Thyroid Stimulating Hormone 5.73 uIU/mL (0.465-4.68)
[2023-04-08 18:41] LABS: Hemoglobin A1C 6.6 % (4.0-6.0)
== END 2023-04-08 23:59 ==
LOC: LAB.DROPOF 20:36
PROVIDERS: PCP Nurse Practitioner Family; Visit Provider Nurse Practitioner Family
DX: E11.9 Type 2 diabetes mellitus without complications (principal); E78.5 Hyperlipidemia, unspecified; E03.9 Hypothyroidism, unspecified; Z79.84 Long term (current) use of oral hypoglycemic drugs
CPT/HCPCS: 80053; 80061; 83036; 84443; 85025

== ENCOUNTER 2023-07-08 16:56 | Outpatient (CLI) | payer MEDICARE, SELFPAY ==
[2023-07-08 17:57] LABS: Basophils # 0.1 K/mm3 (0-0.2); Basophils % 0.8 % (0.1-2.0); Eosinophils # 0.1 K/mm3 (0.0-0.4); Eosinophils % 0.8 % (0.1-12.0); Hematocrit 49.5 % (42.0-52.0); Hemoglobin 15.7 g/dL (14.1-18.0); Lymphocytes % 45.5 % (10-50); Mean Corpuscular HGB Conc 31.7 g/dL (31.8-35.4); Mean Corpuscular Hemoglobin 32.6 pg (27.0-31.2); Mean Corpuscular Volume 102.7 fl (80-94); Mean Platelet Volume 8.8 fl (7.4-10.4); Monocytes # 0.5 K/mm3 (0.1-1.0); Monocytes % 6.1 % (1.7-9.3); Neutrophils # 4.2 K/mm3 (1.8-7.8); Neutrophils % 46.7 % (37.0-80.0); Platelet Count 267 K/mm3 (142-424); Red Blood Count 4.82 M/mm3 (4.60-6.20); Red Cell Distribution Width 14.8 % (11.5-17.5); White Blood Count 8.9 K/mm3 (4.8-10.8)
[2023-07-08 17:58] LABS: Alanine Aminotransferase 29 U/L (12-78); Albumin Level 4.4 g/dl (3.5-5.0); Albumin/Globulin Ratio 1.7 (1.1-1.8); Alkaline Phosphatase 53 U/L (38-126); Anion Gap 9.5 mEq/L (5-15); Aspartate Amino Transferase 32 U/L (17-59); Bilirubin,Total 0.6 mg/dl (0.2-1.3); Blood Urea Nitrogen 20 mg/dl (9-20); Calcium 9.3 mg/dl (8.4-10.2); Carbon Dioxide 29 mmol/L (22.0-30.0); Chloride 106 mmol/L (98-107); Chol/HDL Ratio 4.8 (1-3.5); Cholesterol 201 mg/dl (140-200); Estimated Glomerular Filt Rate 46 ml/min (>60); GFR (African American) 56 ML/MIN (>60); Globulin 2.6 g/dL (1.3-3.2); Glucose 130 mg/dl (74-100); HDL Cholesterol 42 mg/dl (40-60); Potassium 4.5 mmoL/L (3.5-5.1); Sodium 140 mmol/L (136-145); Triglycerides 318 mg/dl (30-150); VLDL Cholesterol 64 mg/dL (0-40)
[2023-07-08 18:09] LABS: Direct LDL Cholesterol 116.27 mg/dL (100-129)
== END 2023-07-08 23:59 | disposition home or self-care (01) ==
LOC: LAB.DROPOF 16:57
PROVIDERS: PCP Family Medicine; Visit Provider Family Medicine
DX: E78.5 Hyperlipidemia, unspecified (principal); E11.9 Type 2 diabetes mellitus without complications; I10 Essential (primary) hypertension; E03.9 Hypothyroidism, unspecified; Z79.84 Long term (current) use of oral hypoglycemic drugs; Z72.0 Tobacco use
CPT/HCPCS: 80053; 80061; 83036; 84443; 85025

== ENCOUNTER 2023-10-11 16:43 | Outpatient (CLI) | payer MEDICARE, SELFPAY ==
[2023-10-11 17:36] LABS: Hemoglobin A1C 6.4 % (4.0-6.0)
[2023-10-11 18:23] LABS: Anion Gap 13.7 mEq/L (5-15); Blood Urea Nitrogen 20 mg/dl (9-20); Calcium 9.4 mg/dl (8.4-10.2); Carbon Dioxide 27 mmol/L (22.0-30.0); Chloride 106 mmol/L (98-107); Chol/HDL Ratio 4.3 (1-3.5); Cholesterol 171 mg/dl (140-200); Estimated Glomerular Filt Rate 54 ml/min (>60); GFR (African American) 66 ML/MIN (>60); Glucose 105 mg/dl (74-100); HDL Cholesterol 40 mg/dl (40-60); Potassium 4.7 mmoL/L (3.5-5.1); Sodium 142 mmol/L (136-145); Triglycerides 258 mg/dl (30-150); VLDL Cholesterol 52 mg/dL (0-40)
[2023-10-11 18:33] LABS: Direct LDL Cholesterol 92.84 mg/dL (100-129)
[2023-10-11 18:54] LABS: Thyroid Stimulating Hormone 7.55 uIU/mL (0.465-4.68)
== END 2023-10-11 23:59 | disposition home or self-care (01) ==
LOC: LAB.DROPOF 16:43
PROVIDERS: PCP Family Medicine; Visit Provider Family Medicine
DX: E03.9 Hypothyroidism, unspecified (principal); E11.9 Type 2 diabetes mellitus without complications; I10 Essential (primary) hypertension
CPT/HCPCS: 80048; 80061; 83036; 84443

== ENCOUNTER 2024-01-10 09:25 | Outpatient (CLI) | payer MEDICARE, SELFPAY ==
[2024-01-10 17:28] LABS: Thyroid Stimulating Hormone 2.22 uIU/mL (0.465-4.68)
== END 2024-01-10 23:59 | disposition home or self-care (01) ==
LOC: LAB.DROPOF 01-11 10:11
PROVIDERS: PCP Family Medicine; Visit Provider Family Medicine
DX: E03.9 Hypothyroidism, unspecified (principal)
CPT/HCPCS: 84443

== ENCOUNTER 2024-02-24 18:42 | Outpatient (CLI) | payer MEDICARE, SELFPAY ==
[2024-02-24 19:08] LABS: Creatinine,Urine Random 25 mg/dL (Not Estab.)
[2024-02-24 19:11] LABS: Microalbumin/Creatinine Ratio 42.4
== END 2024-02-24 23:59 | disposition home or self-care (01) ==
LOC: LAB 18:43
PROVIDERS: PCP Family Medicine; Visit Provider Family Medicine
DX: E11.9 Type 2 diabetes mellitus without complications (principal)
CPT/HCPCS: 82043; 82570

== ENCOUNTER 2024-07-19 16:55 | Outpatient (CLI) | payer MEDICARE, SELFPAY ==
[2024-07-19 17:22] LABS: Basophils # 0.1 K/mm3 (0-0.2); Basophils % 0.6 % (0.1-2.0); Eosinophils # 0.1 Kmm3 (0.0-0.4); Hemoglobin 15.7 g/dL (14.1-18.0); Immature Granulocytes # 0.05 10^3uL; Immature Granulocytes % 0.5 %; Lymphocytes # 4.6 K/mm3 (0.7-4.5); Lymphocytes % 46.4 % (10-50); Mean Corpuscular HGB Conc 32.7 g/dL (31.8-35.4); Mean Corpuscular Hemoglobin 31.8 pg (27.0-31.2); Mean Corpuscular Volume 97.4 fl (80-94); Mean Platelet Volume 9.3 fl (7.4-10.4); Monocytes # 0.7 K/mm3 (0.1-1.0); Monocytes % 6.8 % (1.7-9.3); Neutrophils # 4.4 K/mm3 (1.8-7.8); Neutrophils % 44.7 % (37.0-80.0); Nucleated Red Blood Cells # 0 10^3/uL; Nucleated Red Blood Cells % 0 %; Platelet Count 274 K/mm3 (142-424); Red Blood Count 4.93 M/mm3 (4.60-6.20); Red Cell Distribution Width 13.9 % (11.5-17.5); White Blood Count 9.9 K/mm3 (4.8-10.8)
[2024-07-19 19:11] LABS: Alanine Aminotransferase 26 U/L (12-78); Albumin Level 4.9 g/dl (3.5-5.0); Albumin/Globulin Ratio 2.1 (1.1-1.8); Alkaline Phosphatase 41 U/L (38-126); Anion Gap 15.7 mEq/L (5-15); Aspartate Amino Transferase 36 U/L (17-59); Bilirubin,Total 0.6 mg/dl (0.2-1.3); Blood Urea Nitrogen 22 mg/dl (9-20); Calcium 8.5 mg/dl (8.4-10.2); Carbon Dioxide 22 mmol/L (22.0-30.0); Chloride 104 mmol/L (98-107); Chol/HDL Ratio 4.2 (1-3.5); Cholesterol 158 mg/dl (140-200); Estimated Glomerular Filt Rate 66 ml/min (>60); GFR (African American) 80 ML/MIN (>60); Globulin 2.3 g/dL (1.3-3.2); Glucose 94 mg/dl (74-100); HDL Cholesterol 38 mg/dl (40-60); Potassium 4.7 mmoL/L (3.5-5.1); Sodium 137 mmol/L (136-145); Total Protein,Serum 7.2 g/dl (6.3-8.2); Triglycerides 287 mg/dl (30-150); VLDL Cholesterol 57 mg/dL (0-40)
[2024-07-19 19:21] LABS: Direct LDL Cholesterol 86.28 mg/dL (100-129)
[2024-07-19 19:41] LABS: Prostate Specific Ag Screen 0.7 ng/ml (0.0-4.0); Thyroid Stimulating Hormone 3.56 uIU/mL (0.465-4.68)
[2024-07-19 19:57] LABS: HIV Combo NEGATIVE (Negative)
[2024-07-19 20:05] LABS: Hepatitis C Ab Qual. W/ RFX NEGATIVE (Negative)
[2024-07-19 22:43] LABS: Hemoglobin A1C 6.5 % (4.0-6.0)
== END 2024-07-19 23:59 | disposition home or self-care (01) ==
LOC: LAB 16:55
PROVIDERS: PCP Family Medicine; Visit Provider Family Medicine
DX: E03.9 Hypothyroidism, unspecified (principal); E11.9 Type 2 diabetes mellitus without complications; I10 Essential (primary) hypertension; E78.5 Hyperlipidemia, unspecified; Z11.59 Encounter for screening for other viral diseases; Z11.4 Encounter for screening for human immunodeficiency virus [HIV]
CPT/HCPCS: 80053; 80061; 83036; 84443; 85025; 86803; 87389; G0103

== ENCOUNTER 2024-11-26 22:38 | Outpatient (CLI) | payer MEDICARE, SELFPAY ==
--- OUTSIDE RECORDS SUMMARY | 2024-11-26 22:40 | XMS_ITS | Clinical Summary ---
Author Organization [facility] Address [address] [place] [id number] Care Team Providers Care Operations Executive Name Role Phone Sanchez Valencia MD Primary Care Provider + [phone] Allergies Active Allergy Reactions Criticality Noted Date Comments Ibuprofen 08/15/2015 Medications aspirin 325 MG tablet Take by mouth. 01/03/2013 Active atorvastatin (LIPITOR) 80 MG tablet 07/22/2015 Active levothyroxine (SYNTHROID) 75 MCG tablet Take by mouth. 01/03/2013 Active lisinopril (PRINIVIL,ZESTRI L) 10 MG tablet 07/14/2015 Act jocelyn fluticasone (FLONASE) 50 MCG/ACT nasal spray 07/22/2015 Active vitamin B-12 (CYANOCOBALAMIN) 1000 MCG tablet Take by mouth. 01/03/2013 Active Multiple Vitamins-Mineral s (CENTRUM SILVER PO) Take by mouth. 01/03/2013 Active buPROPion XL (WELLBUTRIN XL) 150 MG 24 hr tablet 07/22/2015 Active clindamycin (CLEOCIN) 300 MG capsule 08/06/2015 Active cetirizine (ZyrTEC) 10 MG tablet Take 10 mg by mouth daily. Active B Complex Vitamins (VITAMIN B COMPLEX IJ) Inject as directed. Active Active Problems Problem Noted Date Diagnosed Date Carotid stenosis 08/15/2015 Cellulitis of foot, left 08/15/2015 Family History Medical History Relation Name Comments Diabetes Father Transient ischemic attack Mother Relation Name Status Comments Father Mother Social History Tobacco Use Types Packs/Day Years Used Date Smoking Tobacco: Every Day Cigarettes 0.5 40 Smokeless Tobacco: Never Alcohol Use Standard Drinks/Week Comments Yes 0 (1 standard drink = 0.6 oz pur e alcohol) Social Beer Abuse Screen Answer Date Recorded Unsafe at Home or Work/School Not on file Feels Threatened by Someone? Not on file 11/2022 Does Anyone Keep You from Co ntacting Others or Doint Things Outside the Home? Not on file 12/20/2022 Physical Sign of Abuse Present Not on file 1 Housing Stability Answer Date Recorded Current Living Arrangements Not on file 11/2022 Potentially Unsafe Housing Conditions Not on dorina e 12/20/2022 Family and Community Support Answer Wyatt e Recorded Help with Day-to-Day Activities Not on file 12/20/2022 Lonely or Isolated Not on file 12/20/2022 Employment Answer Date Recorded Do you want help finding or keeping work or a stas b? Not on file 12/20/2022 Disabilities Answer Date Recorded Concentrating, Remembering, or Making Decisions Difficulty Not on file 12/20/2022 Doing Errands Independently Difficulty Not on fi le 12/20/2022 Education Answer Date Recorded Help with school or training? Not on file Preferred Language Not on file 12/20/2022 Sex and Gender Information Value Date Recorded Sex Assigned at Not on file Legal Sex Male 1:24 PM EDT Gender Identity Not on file Sexual Orientation Not on file Occupation Industry Job Start Date Job End Date Diabled Not on file Not on file Not on file Last Filed Vital Signs Vital Sign Reading Time Taken Comments Blood Pressure 149/83 08/15/2015 10:29 AM EDT Pulse 79 08/15/2015 10:29 AM EDT Temperature 36.6 C (97.8 F) 08/15/2015 10:29 AM EDT Respiratory Rate - - Oxygen Saturation 92% 08/15/2015 10:29 AM EDT Inhaled Oxygen Concentration - - Weight 120 kg (265 lb) 08/15/2015 10:29 AM EDT Height 177.8 cm (5' 10 ) 08/15/2015 10:29 AM EDT Body Mass Index 38.02 08/15/2015 10:29 AM EDT Plan of Treatment Health Maintenance Due Date Last Done Comments ANNUAL PHYSICAL 1950 HEPATITIS C SCREENING 1950 TDAP/TD VACCINES (1 - Tdap) 11/16/1970 COLOGUARD 11/16/1996 COLON CANCER SCREENING 5 YEAR SIGMOIDOSCOPY 11/16/1996 COLONOSCOPY 11/16/1996 COLORECTAL CANCER SCREENING 11/16/1996 CT COLONOGRAPHY 11/16/1996 FECAL OCCULT BLOOD TEST 11/16/1996 FIT Testing (1 year) 11/16/1996 Pneumococcal Vaccine 50+ (1 of 1 - PCV) 11/16/2001 ZOSTER VACCINE (1 of 2) 11/16/2001 AAA SCREEN ONCE 11/16/2016 COVID-19 Vaccine ( - season) 2024 INFLUENZA VACCINE 12/12/2024 Insurance H[employer] Care Teams Operations Executive Relationship Specialty Start Date End Date Sanchez Valencia MD [address] [facility] [address] [place] [id number] PCP - General Adolescent Medicine 08/05/15
== END 2024-11-26 23:59 | disposition home or self-care (01) ==
LOC: LAB.DROPOF 22:39
PROVIDERS: PCP Family Medicine; Visit Provider Family Medicine
DX: E11.9 Type 2 diabetes mellitus without complications (principal); I10 Essential (primary) hypertension
CPT/HCPCS: 82043; 82570

== ENCOUNTER 2025-02-15 08:43 | Outpatient (CLI) | payer MEDICARE, SELFPAY ==
--- NOTE | 2025-02-15 10:00 | CT_ITS ---
FINAL REPORT TECHNIQUE: Axial images were obtained from the lung apex to the mid abdomen by computed tomography. This study was performed with techniques to keep radiation doses as low as reasonably achievable (ALARA). Individualized dose reduction techniques using automated exposure control or adjustment of mA and/or kV according to the patient's size were employed. CLINICAL HISTORY: lung cancer screening. smoker 1ppd for 45 years FINDINGS: CHEST CT LOW DOSE CTDI vol (mGy): 2.90 DLP (mGy-cm): 122.98 There is no axillary adenopathy. There is no hilar or mediastinal adenopathy. The heart is normal in size. There is no pericardial or pleural effusion. Lung window images demonstrate no suspicious infiltrate or nodule. Limited images of the upper abdomen reveals fatty infiltration of the liver. There is an incompletely imaged left renal lesion. IMPRESSION: No pulmonary nodules. Lung RADS category 1. Recommend 12 month follow-up low-dose chest CT. Reviewed, Interpreted and Dictated by Kiara Perez MD Transcribed by Tamica Cotto Authenticated and [facility]
== END 2025-02-15 23:59 | disposition home or self-care (01) ==
LOC: RAD 08:43
PROVIDERS: PCP Family Medicine; Visit Provider Family Medicine
DX: Z12.2 Encounter for screening for malignant neoplasm of respiratory organs (principal); F17.210 Nicotine dependence, cigarettes, uncomplicated
CPT/HCPCS: 71271